=== PATIENT | male | born 1945 | race Caucasian/White ===

== ENCOUNTER → 2021-10-28 | Outpatient (CLI) | payer MEDICARE, OTHER, BC | LOC: M SOG 08:32 | PROVIDERS: ATTEND Orthopaedic Surgery Hand Surgery | DX: Z53.21 Procedure and treatment not carried out due to patient leaving prior to being seen by health care provider (principal) ==

== ENCOUNTER → 2021-11-03 | Outpatient (CLI) | payer MEDICARE, BC, OTHER | LOC: M PLAIMG 09:50 | PROVIDERS: ATTEND Orthopaedic Surgery Hand Surgery | DX: M25.512 Pain in left shoulder (principal); M67.814 Other specified disorders of tendon, left shoulder ==